=== PATIENT | female | born 1950 | race Caucasian/White ===

== ENCOUNTER 2023-11-04 15:02 | Observation (INO) | payer MEDICARE, OTHER, SELFPAY ==
[2023-11-04] VITALS (15 sets, daily range): BP systolic 107–169; BP diastolic 64–125; PULSE 63–83; BMI 23.1; BMI 24.8
--- NOTE | 2023-11-04 12:03 | ED.GENMED ---
History of Present Illness
<Cora Everett PA-C - Last Filed: 11/04/23 14:50>
General
Chief Complaint: Dizziness
Source: patient
Exam Limitations: none
Time Seen by Provider: 11/04/23 12:02
Nursing documentation reviewed up to this point in time: agreed with
History of Present Illness
History of Present Illness:
This is a 73-year-old female with a past medical history of asthma, coronary artery disease, hypertension presenting to the emergency department today with concerns of chest pain and dizziness x 2 days. Yesterday, she first noticed her symptoms
upon awakening. Patient states that she got out of bed and immediately felt dizzy and noticed chest discomfort as well. Patient feels the chest discomfort in the middle of her chest. Patient denies anything that makes it worse or better. Patient
states that it is always there but will occasionally jump off in terms of severity with no clear palliative or provoking factors. Patient states that as the day progressed, the pain and dizziness eventually subsided. Patient states that upon
awakening this morning today, her symptoms returned. Patient states that she sits at rest for period time, she feels well not dizzy. Patient states that when she stands up and walks around this is when it will come on. Patient had her son drive
her here today, states that she was able to walk in here today but when she was standing for too long, felt dizzy. Patient Nuys any shortness of breath, nausea, vomiting, abdominal pain, fevers or chills. Patient follows with Dr. Sutton once a
year. Patient states that when she felt dizzy she has her blood pressure was 110/59 and she states her blood pressure normally runs higher. Patient denies any headache, paresthesias, one-sided numbness or tingling.
Past History
<Cora Everett PA-C - Last Filed: 11/04/23 14:50>
Past History
ED Past Medical History: None
Social History
Tobacco: Former smoker
Alcohol: None
Drug: None
Review of Systems
<Cora Everett PA-C - Last Filed: 11/04/23 14:50>
Review of Systems
All Other Systems: ROS reviewed and negative except as documented in HPI and ROS
Phy Exam
<Cora Everett PA-C - Last Filed: 11/04/23 14:50>
Physical Exam
Physical Exam:
General: Patient is well appearing and in no acute distress; non-toxic
Skin: Warm and dry, no rashes or lesions
Head: Normocephalic, atraumatic
Eyes: Sclera non-icteric. EOMs intact. PERRLA.
Cardiac: Regular rate and rhythm, no murmurs
Peripheral Vascular: No lower extremity swelling or edema
Pulm: Normal respiratory effort, equal breath sounds bilaterally with no wheezing
Abdomen: No abdominal tenderness
Neuro: CN II-XII intact, no focal neurologic deficits. Normal finger-nose, braq-xz-[id number] testing.
Psychiatric: Appropriate mood and affect.
Course
<Cora Everett PA-C - Last Filed: 11/04/23 14:50>
Orders/Labs/Results
Orders:
Orders
11/04/23 11:34
Electrocardiogram (*1) Urgent
Reason for Study: Chest Pain
11/04/23 11:35
EKG- Treatment ONCE
11/04/23 12:19
Orthostatic VS- Treatment ONCE
11/04/23 12:32
Complete Blood Count/With Diff Urgent
Comprehensive Metabolic Panel Urgent
Troponin I Urgent
11/04/23 12:43
Meclizine [Antivert] 25 mg PO NOW STA
11/04/23 13:42
Aspirin 325 mg PO NOW STA
11/04/23 14:26
Aspirin Chewable [Low Strength Aspirin] 81 mg .ROUTE .STK-MED ONE
11/04/23 14:27
Aspirin Chewable [Low Strength Aspirin] 81 mg PO NOW STA
Abnormal Lab Results
11/04/23
12:32
MCH 32.1 H pg
(27.0-31.0)
Chloride 108 H mmol/L
(98-107)
11/04/23 12:32
11/04/23 12:32
Vital Signs
Initial and Last Documented VS:
Initial Vital Signs
Temp Pulse Resp BP Pulse Ox
99.3 F 70 18 169/78 98
11/04/23 11:28 11/04/23 11:28 11/04/23 11:28 11/04/23 11:28 11/04/23 11:28
Last Documented Vital Signs
Temp Pulse Resp BP Pulse Ox
99.3 F 70 18 169/78 98
11/04/23 11:28 11/04/23 11:28 11/04/23 11:28 11/04/23 11:28 11/04/23 11:28
<Vladimir Najera, DO - Last Filed: 11/04/23 12:47>
Orders/Labs/Results
Orders:
Orders
11/04/23 11:34
Electrocardiogram (*1) Urgent
Reason for Study: Chest Pain
11/04/23 11:35
EKG- Treatment ONCE
11/04/23 12:19
Orthostatic VS- Treatment ONCE
11/04/23 12:32
Complete Blood Count/With Diff Urgent
Comprehensive Metabolic Panel Urgent
Troponin I Urgent
11/04/23 12:43
Meclizine [Antivert] 25 mg PO NOW STA
11/04/23 13:42
Aspirin 325 mg PO NOW STA
11/04/23 14:26
Aspirin Chewable [Low Strength Aspirin] 81 mg .ROUTE .STK-MED ONE
11/04/23 14:27
Aspirin Chewable [Low Strength Aspirin] 81 mg PO NOW STA
Abnormal Lab Results
11/04/23
12:32
MCH 32.1 H pg
(27.0-31.0)
Chloride 108 H mmol/L
(98-107)
11/04/23 12:32
11/04/23 12:32
Vital Signs
Initial and Last Documented VS:
Initial Vital Signs
Temp Pulse Resp BP Pulse Ox
99.3 F 70 18 169/78 98
11/04/23 11:28 11/04/23 11:28 11/04/23 11:28 11/04/23 11:28 11/04/23 11:28
Last Documented Vital Signs
Temp Pulse Resp BP Pulse Ox
99.3 F 70 18 169/78 98
11/04/23 11:28 11/04/23 11:28 11/04/23 11:28 11/04/23 11:28 11/04/23 11:28
[place]bar[place];Cora Everett PA-C - Last Filed: 11/04/23 14:50>
MDM/Problems Addressed
Differential Diagnosis Includes:
Differentials include orthostatic hypotension, BPPV, posterior circulation stroke, arrhythmia, ACS
MDM/Problems Addressed:
Dizziness, chest pain:
This is a 73-year-old female with a past medical history of asthma, coronary artery disease, hypertension presenting to the emergency department today with concerns of chest pain and dizziness x 2 days. Yesterday, she first noticed her symptoms
upon awakening. Patient also feels discomfort in her chest. On exam she is well-appearing, her chest pains are reproducible on exam, her neurologic exam is unremarkable, normal finger-nose, heel thrasher testing. Her orthostatic vitals are negative.
Her CBC and CMP are within normal limits. Initial troponin undetectable. Consulted cardiology who recommended assessment of bnp level, giving IV fluids, and potentially being stable for discharge. Considering patient's symptoms did not improve
with meclizine, she continues to be symptomatic with ambulation standing, and she has history of coronary artery disease, we will admit for further observation and workup, as no clear etiology to her symptoms at this time. Patient referred for
admission.
Chronic conditions affecting care:
Coronary artery disease, asthma, htn
Acute Exacerbation and/or Progression of Chronic Illness:
Coronary artery disease, asthma, htn
<Cora Everett PA-C - Last Filed: 11/04/23 14:50>
*Pulse Oximetry
Patient hypoxic: no
*Critical Care Note
Total Time (30-74mins, 75-104mins- exclusive of procedures): Not Applicable
Data Reviewed
Review of Other/Old Records Reveals: Records (reviewed ER physician documentation from 01/06/20) and Discharge Summary (reviewed discharge summary from 01/21/20)
Source: patient and records
<Cora Everett PA-C - Last Filed: 11/04/23 14:50>
Patient Management
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
Escalation/DeEscalation of care consider admission/obs:
Admit indicated. Case reviewed with my attending Dr. Najera.
ED Attending Note
<Cora Everett PA-C - Last Filed: 11/04/23 14:50>
-
Portions of this chart may have been created with voice recognition software.� Occasional wrong word or��sound alike� substitutions may have occurred due to the inherent limitations of voice recognition software.
<Vladimir Najera, - Last Filed: 11/04/23 12:47>
ED Attending Note
Patient seen and examined by attending physician: Yes
I performed the substantive portion of visit, reviewed & personally made and approve the management plan that is documented in note by myself or FRANCIS.: Yes
ED Attending Note:
I have seen and evaluated the patient with a ehoi-wa-lqdc encounter. I have spoken to the advance practicer provider and involved in the medical history, the physical exam, medical decision making.
Evaluation and management service: agree unless noted differently below.
Results interpretation: agree unless noted differently below.
Focused HPI: 73-year-old female presenting with dizziness and chest discomfort. Patient believes the 2 could be related. Patient states she has been developing shortness of breath and chest pain when she exerts herself. Symptoms resolved at rest.
She got worried because she got up out of bed today and felt extremely dizzy and the room spinning.
Physical exam: TMs clear. Heart regular in rhythm. No cerebellar signs. Positive Tato-Hallpike to the left with fatigable horizontal nystagmus
Medical Decision Making: Regards to the dizziness, we discussed likely benign vertigo will give dose of meclizine. In regards to the chest discomfort, will obtain troponin and discussed case with cardiology
Discharge Plan
Departure
Patient Disposition: Admit
Date of Disposition: 11/04/23
Time of Disposition: 14:12
Admit to: Telemetry
Presentation/result/management discussed w/ accepting MD/DO: Hospitalist
Condition: Fair
Discharge Problem:
Dizzinesses, Chest pain
Prescriptions:
No Action
cetirizine 10 MG tablet
10 mg PO DAILY
aspirin 81 MG tablet,delayed release (DR/EC)
81 mg PO DAILY
npygrccynxc-kuiezobmc-iio C-Mn 1 TAB tablet
1 tab PO DAILY
multivitamin with folic acid [Tab-A-Marilin] 1 TABLET tablet
1 tab PO DAILY
psyllium husk [Metamucil] 0.4 GM capsule
0.4 gm PO DAILY
calcium carbonate [Calcium 500] 500 mg calcium (1,250 mg) Tablet
500 mg PO DAILY
metoprolol succinate 25 mg tablet extended release 24 hr
12.5 mg PO DAILY
lysine [L-Lysine] 500 mg Tablet
500 mg PO DAILYPRN PRN (Reason: sun exposure)
vitamin B complex [B Complex] Capsule
1 cap PO QPM
rosuvastatin 10 mg tablet
10 mg PO QPM
coenzyme Q10 [Co Q-10] 200 mg Capsule
200 mg PO QPM
Arnuity Ellipta 100 mcg/actuation blister with device
1 inh INHALATION R DAILY
potassium
1 tab PO QPM
Referrals:
Merry Farooq CRNP [Family Provider] -
Interventions
Interventions:
*General Assessment Last Done: 11/04/23 13:41
*Neglect/Abuse Screening Last Done: 11/04/23 13:41
ED- Fall Risk Assessment Last Done: 11/04/23 13:41
*ED COVID-19 Vaccine History Last Done: 11/04/23 13:41
ED- Neurological Assessment Last Done: 11/04/23 12:09
ED- Cardiac Assessment Last Done: 11/04/23 13:41
Discharge Date and Time
Print Language: VIETNAMESE
[2023-11-04 12:44] LABS: % Basophils 0.4 % (0-2); % Eosinophils 0.9 % (0-6); % Immature Granulocytes 0.1 % (0-0.5); % Lymphocytes 33.1 % (20.5-51.1); % Monocytes 7.6 % (1.7-9.3); % Neutrophils 57.9 % (42.2-75.2); Absolute Eosinophils 0.1 10^3/uL (0-0.7); Absolute Lymphocytes 2.3 10^3/uL (1.2-3.4); Absolute Monocytes 0.5 10^3/uL (0.1-0.6); Hematocrit 39.5 % (37.0-47.0); Hemoglobin 13.5 g/dL (12.0-16.0); Mean Corp Hgb Conc. 34.2 g/dL (33.0-37.0); Mean Corpuscular Hgb 32.1 pg (27.0-31.0); Mean Platelet Volume 9.3 fL (7.4-10.4); Nucleated Red Blood Cells % 0 %; Platelet Count 165 10^3/uL (130-400); Red Cell Dist. Width 13.1 % (11.5-14.5); White Blood Cell Count 6.9 10^3/uL (4.8-10.8)
[2023-11-04 12:58] LABS: ALT (SGPT) 20 U/L (0-35); AST (SGOT) 32 U/L (14-36); Albumin 4.6 g/dl (3.5-5.0); Alkaline Phosphatase 56 U/L (38-126); Blood Urea Nitrogen 14 mg/dl (7-17); Calcium 9.3 mg/dl (8.4-10.2); Carbon Dioxide 29 mmol/L (22-30); Chloride 108 mmol/L (98-107); Estimated Creatinine Clearance 52 ml/min; Glucose 99 mg/dl (70-99); Potassium 4.6 mmol/L (3.5-5.1); Sodium 142 mmol/L (135-145); Total Bilirubin 0.5 mg/dl (0.2-1.3); Total Protein 7.1 g/dl (6.3-8.2); eGFR > 60.00
[2023-11-04] MEDS: ANTIVERT 25 MG PO (13:00)
[2023-11-04 13:09] LABS: Troponin I < 0.012 ng/ml
[2023-11-04] MEDS: LOW STRENGTH ASPIRIN 81 MG PO (14:27)
--- NOTE | 2023-11-04 15:26 | HPS.HSE ---
Family Physician
-
Family Physician: Merry Farooq
Chief Complaint
-
Chest tightness and dizziness
History of Present Illness
73-year-old female with history of hypertension, dyslipidemia, mild asthma lives independently at home, Presented to the hospital because she has been complaining of the 3 to 4 days intermittent tightness and burning in the center of the chest
occasionally radiating to the left side of the face and jaw worse when she gets around and exert herself and is up when she arrives, associated with occasional dizziness. With dizziness and lightheadedness especially when she tried to get up,
denies any syncope or any palpitation, denies any sweating or nausea or vomiting.
Symptoms started on Monday while she was playing golf outside in the heat despite drinking a lot of water but since then the symptoms been intermittent and usually triggered panic and exertional try to get up.
Denies any weakness or numbness in extremity or any vision change or any urinary symptoms or any changes to urine color, denies taking any NSAID.
Limited compliance with medication she has been checking her vital signs and they are been a good range.
Workup in the ER basically showed no acute abnormality.
She is awake, alert and oriented x 3. Rest conversation, complain of mild discomfort.
Medical History
Past Medical History
Past Medical History: Reports Other
Additional Past Medical History:
Past medical history
Reviewed:
Hypertension
Sleep edema
Breast status post excision
Former smoker
Asthma
Cervical cancer management:-Laser
Surgical history:
Bilateral bunionectomy
Left breast biopsy
Cervical laser and cold knife
Colonoscopy
Left heart cath in January 07, 2020.
Social history: She lives alone independently, former smoker and socially drinks alcohol and she is independent.
Family history: Reviewed and noncontributory
Past Surgical History: Reports Other
Social History
Unable to obtain full social history at this time due to: Other
Family History
Family History: Other
Allergies / Home Medications
Allergies reflects when Allergies were last updated in [facility].
Home Medications with original date entered in [facility]
Allergy/Medication List:
Allergies
Allergy/AdvReac Type Severity Reaction Status Date / Time
meperidine [From Demerol] Allergy Unknown Verified 01/06/20 13:51
Sulfa (Sulfonamide Allergy Unknown Verified 01/06/20 13:51
Antibiotics)
Home Medications
aspirin 81 mg tablet,delayed release 81 mg PO DAILY Blood clot prevention/tx 01/06/20
cetirizine 10 mg tablet 10 mg PO DAILY Allergies 01/06/20
cebhdkimkpi-kaoodqawt-cnu C-Mn 750 mg-600 mg-55 mg-5 mg tablet 1 tab PO DAILY Supplement 01/06/20
multivitamin with folic acid 400 mcg tablet (Tab-A-Marilin) 1 tab PO DAILY Supplement 01/06/20
psyllium husk 0.4 gram capsule (Metamucil) 0.4 gm PO DAILY bowel regimen 01/06/20
calcium carbonate 500 mg PO DAILY 11/04/23
coenzyme Q10 200 mg capsule (Co Q-10) 200 mg PO QPM 11/04/23
fluticasone furoate 100 mcg/actuation blister powder for inhalation (Arnuity Ellipta) 1 inh inhalation R DAILY 11/04/23
lysine 500 mg tablet (L-Lysine) 500 mg PO DAILYPRN PRN sun exposure 11/04/23
metoprolol succinate 25 mg tablet,extended release 24 hr 12.5 mg PO DAILY 11/04/23
potassium 1 tab PO QPM 11/04/23
rosuvastatin 10 mg tablet 10 mg PO QPM 11/04/23
vitamin B complex 1 cap PO QPM 11/04/23
Review of Systems
-
Unable to obtain full review of systems at this time due to: Other
Physical Exam
Vital Signs
Vital Signs
Temp Pulse Resp BP Pulse Ox
99.3 F 63 18 138/75 97
11/04/23 11:28 11/04/23 14:45 11/04/23 12:28 11/04/23 14:00 11/04/23 14:45
Physical exam:
General: Awake, alert and oriented x3, not in distress and holds appropriate conversation.
HEENT: No active discharge, ecchymosis or bruising, moist lips, tongue and mucous membrane.
Eyes: No discharge or red conjunctiva, no nystagmus, pupils are reactive and equal
Neck:Supple, no JVD no bruit no goiter.
Respiratory: Normal AP contour and diameter, normal chest wall movement, normal respiratory effort, no respiratory distress,
Lungs: Good air entry bilaterally, no wheezing or rhonchi, no rales or crackles
Heart: S1, S2 regular, normal rate, no added sound.
Gastrointestinal: Positive bowel sounds, soft, nontender, no guarding or rigidity or organomegaly
Musculoskeletal: , no chest wall abnormality or tenderness. All joints and extremities have good range of motion, no muscle tenderness or any joint swelling or tenderness.
Extremities: No pitting edema, good peripheral pulses, good range of motion
Skin: Warm and dry, no ulceration, normal color.
Neurological: Awake, alert and oriented x3, speech clear and comprehensive, good muscle tone, normal sensory and motor function
Psychiatric: Normal mood, normal thought and judgment, normal affect,
Physical Exam
Skin: Other
Laboratory Results
-
11/04/23 12:32
11/04/23 12:32
Laboratory Results
Total Bilirubin 0.5 mg/dl (0.2-1.3) 11/04/23 12:32
AST 32 U/L (14-36) 11/04/23 12:32
ALT 20 U/L (0-35) 11/04/23 12:32
Alkaline Phosphatase 56 U/L (38-126) 11/04/23 12:32
Troponin I < 0.012 ng/ml 11/04/23 12:32
EKG showed normal sinus rhythm at around 64, [place] 132, QTc 437, there is PAC otherwise no acute abnormalities.
Data Reviewed
-
Medical Tests (Nuc Med, Echo, EKG etc): Image Personally Visualized and interpreted, Report Reviewed by me and Discussed with Patient
Lab Data: Labs Reviewed by me and Discussed with Patient
Old Records: Reviewed
Impression/Plan
-
IMPRESSION:
73-year-old female with history of hypertension, dyslipidemia presented to the hospital with intermittent tightness and burning in the center of the chest occasional dizziness worse with exertion and is up with rest, pulm artery disease and a
concerning while go to the stretcher musculoskeletal could be a possibility so further workup is negative.
Recurrent chest tightness and burning, coronary disease many typical symptoms
Dizziness,
The past medical musculoskeletal
Possible GERD and gastritis
Dyslipidemia
Hypertension
PLAN:
Cardiac monitoring
Repeat cardiac enzymes follow the trends reports been negative
Cardiology consult
Close monitoring
Continue aspirin, beta-bandar and statin
Orthostatic vital sign
Closely
Cardiology been contacted.
I discussed with the patient in detail expressed understanding
Home medication reviewed and all the vitamins she takes
If cardiac workup is negative and she still symptomatic then may consider GI
Regarding dizziness, regular: She tried to stand up and get around getting around, concerning for benign positional vertigo with no cardiac arrhythmia.
Get a CT brain without contrast
If not improving still symptomatic we will get an MRI
[2023-11-04 17:03] LABS: Troponin I < 0.012 ng/ml
[2023-11-04] MEDS: LOVENOX 40 MG SC (17:50)
[2023-11-04] MEDS: CRESTOR 10 MG PO (17:50)
[2023-11-04 19:29] LABS: Troponin I < 0.012 ng/ml
[2023-11-05 03:24] VITALS: BP 136/76
[2023-11-05 07:05] VITALS: BP 132/77; BP 137/75; BP 138/68; PULSE 63; PULSE 75; PULSE 77
[2023-11-05 07:10] VITALS: BP 146/69
[2023-11-05] MEDS: FLOVENT 44 MCG INHALER 2 PUFF INH (07:14)
[2023-11-05] MEDS: ASPIR LOW (ENTERIC COATED) 81 MG PO (07:55)
[2023-11-05] MEDS: ZYRTEC 10 MG PO (07:55)
[2023-11-05] MEDS: TOPROL XL 12.5 MG PO (07:55)
--- NOTE | 2023-11-05 10:03 | CM ---
Patient seen bedside, initial assessment completed. Patient resides independently in a two story town home, three steps to enter. Patient reports her son lives in [place] who provides support if needed. Patient denies DME, VN or SNF, reports
outpatient PT in the past. Patient reports she is active and plays golf twice a week. Patient PCP Merry Farooq, pharmacy [facility]. Patient confirms prescription coverage through her [employer], denies food insecurities at home. PETERS form
reviewed, signed, placed in chart. CM will continue to follow for all discharge planning needs.
Plan; home no needs anticipated.
--- NOTE | 2023-11-05 10:16 | W.PN.HOSP.TC ---
Today's Communication/Plan
-
Discharge
Assessment / Plan
Assessment / Plan
Gen-AAOx3, NAD
HEENT-NC, AT, anicteric, clear oral mm
Neck-supple
CV-reg, no M, +S1/S2
Lungs-clear B/L
Abd-soft, NT, ND
Ext-no edema
Musculoskeletal-no cyanosis, clubbing
Skin-warm and dry
Neuro-grossly non-focal
Psych-calm, cooperative
Chest tightness -doubt ACS or significant cardiac disease. Troponins negative. Reportedly had negative stress test in the past 6 months in [facility]. I spoke with Dr. Borjas from cardiology, he is okay with discharge.
Differential diagnosis includes esophageal disease such as reflux, esophagitis, esophageal spasm. May need outpatient GI follow-up.
Possible benign positional vertigo -positive Tato-Hallpike noted in the emergency room. Will need outpatient vestibular rehab. Orthostatics negative.
Essential hypertension -stable.
Hyperlipidemia -on Crestor.
Full code
Dispo -medically stable for discharge. Cardiology agrees. Outpatient echocardiogram. Follow-up with PCP this week.
35 minutes spent in discharge process.
Anticipated Discharge: Today
Subjective/Interval History
-
Date of Service: November 05, 2023
Patient seen and examined. Still has intermittent chest tightness, burning.
Objective Data
-
Vital Signs:
Vital Signs
Temp Pulse Resp BP Pulse Ox
98.2 F 81 16 146/69 96
11/05/23 07:10 11/05/23 07:15 11/05/23 07:15 11/05/23 07:10 11/05/23 07:15
I&O
11/04/23 11/05/23 11/06/23
06:59 06:59 06:59
Intake Total 240 / 240
Balance 240 / 240
Review of Systems
-
History Source: Patient
All other systems: Reviewed and negative
--- NOTE | 2023-11-05 10:26 | W.DS.TRANS ---
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
-
Discharge Instructions:
Discharge Diagnosis/Procedures Benign positional vertigo, chest tightness
Diet Low Cholesterol,Low Fat
Activity As tolerated
Driving Restrictions As prior to admission
Bathing Restrictions None
Instructions:
Stand-Alone Forms:
Changes to Home Medications: No
Discharge Medications:
DC Medications w/original date entered in [facility]
aspirin 81 mg tablet,delayed release 81 mg PO DAILY Blood clot prevention/tx 01/06/20
cetirizine 10 mg tablet 10 mg PO DAILY Allergies 01/06/20
qvikfgxbaru-fuhwlfvyy-afe C-Mn 750 mg-600 mg-55 mg-5 mg tablet 1 tab PO DAILY Supplement 01/06/20
multivitamin with folic acid 400 mcg tablet (Tab-A-Marilin) 1 tab PO DAILY Supplement 01/06/20
psyllium husk 0.4 gram capsule (Metamucil) 0.4 gm PO DAILY bowel regimen 01/06/20
calcium carbonate 500 mg PO DAILY Supplement 11/04/23
coenzyme Q10 200 mg capsule (Co Q-10) 200 mg PO QPM Supplement 11/04/23
fluticasone furoate 100 mcg/actuation blister powder for inhalation (Arnuity Ellipta) 1 inh inhalation R DAILY Lung/Breathing Issues 11/04/23
lysine 500 mg tablet (L-Lysine) 500 mg PO DAILYPRN PRN sun exposure 11/04/23
metoprolol succinate 25 mg tablet,extended release 24 hr 12.5 mg PO DAILY Blood Pressure 11/04/23
potassium 1 tab PO QPM Electrolyte Repletion 11/04/23
rosuvastatin 10 mg tablet 10 mg PO QPM High Cholesterol 11/04/23
vitamin B complex 1 cap PO QPM Supplement 11/04/23
Home Medication Changes
Pending Results: No
--- NOTE | 2023-11-05 10:55 | CON.CAR ---
Consultation
Consultation Request
Date/Time Consultation Requested: November 05, 2023
Date/Time Consultation Performed: November 05, 2023
Requesting Provider: Hospitalist and emergency room team
Performing Provider: [place]
Reason for Consultation: Dizzy
Medical History
-
Chief Complaint: Dizzy
History of Present Illness:
Samina is a very pleasant 73-year-old female who was playing golf on Monday in a hot environment and had a lot of insensible losses. She has been lightheaded and dizzy and Monday and came to the emergency room on Monday for workup.
Low-grade temperatures 99.3 noted at home with bandlike chest pressure noted without exacerbating factor. No recent lifting per patient. She has a prior coronary history of cardiac catheterization demonstrating no significant coronary artery
disease in 2019 with a stress test in March 2023 without any ischemia. She has negative troponins and a normal ECG. She was offered discharge from the emergency department but was admitted for observation due to ongoing dizziness. I mentioned
IV hydration to the patient who deferred saying that normal saline makes her 'swell '.
Past medical history:
Chest pain.
Hypertension.
No significant coronary artery disease by cardiac
catheterization at [facility] in 2011.
History of nonsustained VT seen on an outpatient monitor
04/2005.
Asthma.
Past Medical History
Past Medical History: Arrhythmias and Asthma
Social History
Tobacco: Non-Smoker
Alcohol: None
Drug: None
Personal:
Living: With Family
Employment: Not Employed
Family History
Family History: Reviewed & Not Pertinent
Allergies / Home Medications
Allergy/AdvReac Type Severity Reaction Status Date / Time
meperidine [From Demerol] Allergy Unknown Verified 01/06/20 13:51
Sulfa (Sulfonamide Allergy Unknown Verified 01/06/20 13:51
Antibiotics)
�Medication �Instructions �Recorded �Confirmed �Type
aspirin 81 mg tablet,delayed 81 mg PO DAILY Blood clot 01/06/20 11/04/23 History
release prevention/tx
cetirizine 10 mg tablet 10 mg PO DAILY Allergies 01/06/20 11/04/23 History
bhttaqgbgfe-zqfakpmpu-ity C-Mn 750 1 tab PO DAILY Supplement 01/06/20 11/04/23 History
mg-600 mg-55 mg-5 mg tablet
multivitamin with folic acid 400 1 tab PO DAILY Supplement 01/06/20 11/04/23 History
mcg tablet (Tab-A-Marilin)
psyllium husk 0.4 gram capsule 0.4 gm PO DAILY bowel regimen 01/06/20 11/04/23 History
(Metamucil)
calcium carbonate 500 mg PO DAILY Supplement 11/04/23 11/04/23 History
coenzyme Q10 200 mg capsule (Co 200 mg PO QPM Supplement 11/04/23 11/04/23 History
Q-10)
fluticasone furoate 100 1 inh inhalation R DAILY 11/04/23 11/04/23 History
mcg/actuation blister powder for Lung/Breathing Issues
inhalation (Arnuity Ellipta)
lysine 500 mg tablet (L-Lysine) 500 mg PO DAILYPRN PRN sun exposure 11/04/23 11/04/23 History
metoprolol succinate 25 mg 12.5 mg PO DAILY Blood Pressure 11/04/23 11/04/23 History
tablet,extended release 24 hr
potassium 1 tab PO QPM Electrolyte Repletion 11/04/23 11/04/23 History
rosuvastatin 10 mg tablet 10 mg PO QPM High Cholesterol 11/04/23 11/04/23 History
vitamin B complex 1 cap PO QPM Supplement 11/04/23 11/04/23 History
Review of Systems
-
All other systems: Negative unless noted
Constitutional: Fatigue
Cardiac: Chest Pain
Neurological: Dizzy and Weakness
Physical Exam
Vital Signs
Temp Pulse Resp BP Pulse Ox
98.2 F 81 16 146/69 96
11/05/23 07:10 11/05/23 07:15 11/05/23 07:15 11/05/23 07:10 11/05/23 07:15
Lab Results
11/04/23 12:32
11/04/23 12:32
Troponin I Cancelled 11/04/23 22:17
Physical Exam
General: Well Developed and Well Nourished
HEENT: Normocephalic and Anicteric
Respiratory: Clear
Cardiac: S1/S2 and Regular Rhythm
Breast: Deferred by me
GI: Soft, Non Tender and Non Distended
Musculoskeletal: No Clubbing and No Cyanosis
Skin: Warm and Dry
Neuro: Awake, Alert and Oriented
Hematologic/Lymphatic: No Lymphadenopathy
Psych: Calm
Impression / Plan
-
IMPRESSION:
Chest pain-appears atypical and likely noncardiac
Negative troponin serially
Acute dizziness
Acute weakness
History of hypertension
History of no significant coronary artery disease by cardiac
catheterization at [facility] in 2011.
History of nonsustained VT seen on an outpatient monitor
04/2005.
Asthma-no wheeze on exam
Recommendations:
She appears to be having a vasovagal episode related to multiple symptoms after insensible losses during a golf round on Monday. I suspect her chest symptoms are related to volume depletion or relative volume depletion and recommended IV
hydration. She deferred as she tells me she has had swelling after IV saline in the past.
-I have no objection to discharge today with outpatient follow-up in our office and I will have our office reach out to her on Monday for an outpatient echocardiogram
-I had a long discussion with patient regarding increasing hydration including electrolyte rich solution as well as caffeine and alcohol avoidance over the next week with a reduction in physical activity for 5 to 7 days as well.
-I also have no objection to a short course of 3 to 5 days of Motrin 400 mg twice daily�3 times daily in case she has a viral syndrome given her recent temperatures of 99.3-99.8.
Data Reviewed
-
EKG: Tracing Personally Visualized and interpreted
Radiology: Image Personally Visualized and interpreted
Labs: Labs Reviewed by me
Old Records: Reviewed
[2023-11-05 11:24] LABS: Glycohemoglobin (HgbA1c) 5.6 % (4.0-5.6)
[2023-11-05 11:26] VITALS: BP 152/84
== END 2023-11-05 12:59 | disposition home or self-care (01) ==
LOC: 4 EAST ACU 15:02
PROVIDERS: Physician Assistant; ADMITTING PHYSICIAN Internal Medicine; ATTENDING PHYSICIAN Hospitalist; CONSULT PHYSICIAN Internal Medicine Cardiovascular Disease; EMERGENCY PHYSICIAN Student in an Organized Health Care Education/Training Program; FAMILY PHYSICIAN Nurse Practitioner Adult Health
DX: R07.89 Other chest pain (principal); H81.10 Benign paroxysmal vertigo, unspecified ear; R53.1 Weakness; E78.5 Hyperlipidemia, unspecified; J45.909 Unspecified asthma, uncomplicated; I25.10 Atherosclerotic heart disease of native coronary artery without angina pectoris; I10 Essential (primary) hypertension; I95.1 Orthostatic hypotension; Z87.891 Personal history of nicotine dependence; Z79.82 Long term (current) use of aspirin; Z85.41 Personal history of malignant neoplasm of cervix uteri; Z60.2 Problems related to living alone; Z88.5 Allergy status to narcotic agent; Z88.2 Allergy status to sulfonamides
CPT/HCPCS: 70450; 80053; 83036; 84484; 85025; 93005; 94640; 99285; G0378

== ENCOUNTER → 2023-11-22 10:03 | Outpatient (REF) | payer MEDICARE, OTHER, SELFPAY | LOC: HWRCS 10:03 | PROVIDERS: ATTENDING PHYSICIAN Internal Medicine Cardiovascular Disease; FAMILY PHYSICIAN Nurse Practitioner Adult Health | DX: I10 Essential (primary) hypertension (principal); I25.10 Atherosclerotic heart disease of native coronary artery without angina pectoris; R06.00 Dyspnea, unspecified | CPT/HCPCS: 93306 ==

== ENCOUNTER → 2024-04-19 08:47 | Outpatient (REF) | payer MEDICARE, OTHER, SELFPAY | LOC: WDC 08:47 | PROVIDERS: ATTENDING PHYSICIAN Nurse Practitioner Adult Health | DX: Z12.31 Encounter for screening mammogram for malignant neoplasm of breast (principal) | CPT/HCPCS: 77063; 77067 ==

== ENCOUNTER → 2025-04-23 11:19 | Outpatient (REF) | payer MEDICARE, OTHER, SELFPAY | LOC: WDC 11:19 | PROVIDERS: ATTENDING PHYSICIAN Nurse Practitioner Adult Health | DX: Z12.31 Encounter for screening mammogram for malignant neoplasm of breast (principal) | CPT/HCPCS: 77063; 77067 ==